=== PATIENT | female | born 1955 | race Hispanic/Latino ===

== ENCOUNTER 2020-08-06 07:08 | Observation (INO) | payer OTHER ==
[2020-08-02 15:25] LABS: BASOPHILS % 0.8 % (0.0-1.0); EOSINOPHILS # (AUTO) 0.3 (0.0-0.4); EOSINOPHILS % 5.2 % (0.0-6.0); HEMATOCRIT 37.1 % (34.2-44.1); HEMOGLOBIN 12.3 g/dL (12.0-16.0); LYMPHOCYTES # (AUTO) 1.8 (1.0-3.2); LYMPHOCYTES % 36.1 % (18.0-39.1); MEAN CORPUSCULAR HEMOGLOBIN 30.7 pg (28-32); MEAN CORPUSCULAR HGB CONC 33.2 g/dL (31-35); MEAN CORPUSCULAR VOLUME 92.5 fL (81-99); MONOCYTES # (AUTO) 0.5 (0.2-0.8); MONOCYTES % 9.8 % (4.4-11.3); NEUTROPHILS # (AUTO) 2.4 (2.1-6.9); NEUTROPHILS % 47.9 % (38.7-80.0); PLATELET COUNT 179 x10e3/uL (140-360); RED BLOOD COUNT 4.01 x10e6/uL (3.6-5.1)
[2020-08-02 15:44] LABS: ALBUMIN 3.9 g/dL (3.5-5.0); ALBUMIN/GLOBULIN RATIO 1.1 (0.8-2.0); ANION GAP 11.1 mmol/L (8-16); CALCIUM 9.2 mg/dL (8.4-10.2); CREATININE, SERUM 1.04 mg/dL (0.57-1.11); POTASSIUM 4.1 mmol/L (3.5-5.1)
[~2020-08-06] VITALS: Ht 157.5 cm; Wt 77.6 kg
[~2020-08-06 07:08] MED LIST: BACLOFEN10 MG PO; IRBESARTAN-HCT1 EAC1 PO; KRILL OIL 5001 EACH PO; LEXAPRO10 MG PO; LINZESS290 MCG PO; METFORMIN500 MG/5 M PO; MISOPROSTOL100 MCG PO; PRAVASTATIN SOD40 MG PO; SUCRALFATE1 GM PO; TRAZODONE HCL100 MG PO
[2020-08-06] MEDS ORDERED: SODIUM CHLORIDE 0.9% 50ML 100 ML ONE (07:32)
[2020-08-06] MEDS ORDERED: SUGAMMADEX SODIUM 200 MG/2 ML VIAL IV ONE (09:23)
[2020-08-06] MEDS ORDERED: ACETAMINOPHEN 1000 MG/100 ML 100 ML IV ONE (09:23)
[2020-08-06] MEDS ORDERED: ESTROGENS CONJUGATED VAGINAL CR 45 GM TUBE PV ONE (09:25)
[2020-08-06] MEDS ORDERED: LIDOCAINE 1% W/EPINEPHRINE 20 ML VIAL ONE (09:25)
[2020-08-06] MEDS ORDERED: FENTANYL CITRATE/PF 100MCG/2 ML INJ ONE (13:28)
[2020-08-06 15:09] VITALS: BP 141/73
[2020-08-06] MEDS ORDERED: HYDROCODONE/APAP 5MG-325MG TAB PO ONE (16:45)
[2020-08-06] MEDS ORDERED: LIDOCAINE HCL 2% JELLY 5 ML TUBE ONE (19:08)
[2020-08-06] MEDS ORDERED: POVIDONE IODINE 0.05% 0.05 % ML PO ONE (19:08)
[2020-08-06] MEDS ORDERED: PROPOFOL IV EMULSION 10 MG/ML 20 ML VIAL ONE (19:08)
[2020-08-06] MEDS ORDERED: ONDANSETRON HCL INJ 2MG/ML 2ML 2 MG/ML VIAL ONE (19:08)
[2020-08-06] MEDS ORDERED: DEXAMETHASONE SOD PHOS INJ 4 MG/ML VIAL ONE (19:08)
[2020-08-06] MEDS ORDERED: ROCURONIUM BROMIDE 10 MG/ML 5ML VIAL IV ONE (19:08)
[2020-08-06] MEDS ORDERED: SEVOFLURANE INHAL SOLN 250 ML PEN BTL ONE (19:08)
[2020-08-06] MEDS ORDERED: LIDOCAINE HCL 2% LOCAL INJ 5 ML SDV VIAL INJ ONE (19:08)
[2020-08-06] MEDS ORDERED: KETOROLAC TROMETHAMINE 30 MG/ML VIAL ONE (19:08)
[2020-08-06] MEDS: HYDROCODONE/APAP 5MG-325MG TAB PO PRN (22:50)
[2020-08-06 22:58] VITALS: BP 141/73
[2020-08-06 23:09] VITALS: BP 141/73
[2020-08-07 00:08] VITALS: BP 114/59
[2020-08-07 04:52] VITALS: BP 110/54
[2020-08-07] MEDS: HYDROCODONE/APAP 5MG-325MG TAB PO PRN ×2 (06:46→15:32)
[2020-08-07 07:45] VITALS: BP 129/69
[2020-08-07 11:50] VITALS: BP 121/59
[2020-08-07 12:00] VITALS: BP 121/59
== END 2020-08-07 16:19 | disposition home or self-care (01) ==
LOC: OR 07:08 → PACU V 13:50 → IMCU 14:51
PROVIDERS: ADMIT Obstetrics & Gynecology; ATTEND Obstetrics & Gynecology
DX: N81.89 Other female genital prolapse (principal); N81.4 Uterovaginal prolapse, unspecified; N39.3 Stress incontinence (female) (male); E11.9 Type 2 diabetes mellitus without complications; E78.00 Pure hypercholesterolemia, unspecified; F32.9 Major depressive disorder, single episode, unspecified; K21.9 Gastro-esophageal reflux disease without esophagitis; K58.9 Irritable bowel syndrome, unspecified; M06.9 Rheumatoid arthritis, unspecified; I10 Essential (primary) hypertension
CPT/HCPCS: 36415 ×2; 57260; 57282; 57288; 58262; 71046; 80053; 82948; 85025; 88307; 93005; 99251; C1781; G0378 ×2; J0131; J0690; J1100; J1885; J2001 ×2; J2405; J2704; J3010